=== PATIENT | female | born 1940 | race Caucasian/White ===

== ENCOUNTER 2017-01-06 09:31 | Outpatient (CLI) ==
[2016-06-03 14:59] VITALS: BMI 27.4
--- NOTE | 2017-01-06 10:22 | US ---
EXAM: Ultrasound bilateral carotid duplex HISTORY: Hypertension and diabetes with concern for bruit COMPARISON: Carotid Doppler 02/22/2013 and 10/14/2011 TECHNIQUE: Sonographic and color Doppler evaluation of the carotids were performed. FINDINGS: The right carotid is patent in appearance and tortuous with mild atherosclerotic plaque visualized. The right ICA peak systolic velocity measures 100 cm/sec which is normal. The ICA / CCA peak systolic velocity ratio is 2.2 and ICA end-diastolic velocity is 20 cm/sec. The left carotid is patent in appearance and tortuous with mild to moderate atherosclerotic plaque v isualized. The left ICA peak systolic velocity measures 150 cm/sec which is mildly elevated. The left ICA / CCA peak systolic velocity ratio is 2.7 and ICA end-diastolic velocity is 30 cm/sec. Vertebral arteries demonstrate antegrade flow bilaterally. IMPRESSION: 1. 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 This has worsened by velocity measurements since prior ex amination 2012. 2. Mild sonographic atherosclerotic disease of the right ICA with no Doppler velocity changes to cummings ggest hemodynamically significant stenosis.
== END 2017-01-06 09:32 | disposition home or self-care (01) ==
LOC: RAD 09:31
PROVIDERS: ATTEND Family Medicine
DX: I65.29 Occlusion and stenosis of unspecified carotid artery (principal); R09.89 Other specified symptoms and signs involving the circulatory and respiratory systems

== ENCOUNTER 2017-03-24 10:25 | Outpatient (CLI) ==
[2016-06-03 14:59] VITALS: BMI 27.4
--- NOTE | 2017-03-24 12:22 | DI ---
EXAM: Three views of the lumbar spine. History: Lower back pain. Findings: Atherosclerotic vascular calcifications. Osteopenia. No acute fracture or subluxation. Mild to moderate multilevel degenerative disc space narrowing with endplate sclerosis and a few small anterior osteophytes. Impression: 1. No acute osseous abnormality. 2. Mild to moderate degenerative changes. 3. Osteopenia
== END 2017-03-24 10:26 | disposition home or self-care (01) ==
LOC: RAD 10:25
PROVIDERS: ATTEND Family Medicine
DX: M54.9 Dorsalgia, unspecified (principal); G89.29 Other chronic pain

== ENCOUNTER 2018-05-02 14:53 | Outpatient (CLI) ==
[2016-06-03 14:59] VITALS: BMI 27.4
--- NOTE | 2018-05-02 16:00 | DI ---
EXAM: Two views of the chest. History: Short of breath Comparison: Chest CT 03/04/2015 Findings: Heart is mildly enlarged. There is a new 8.3 cm x 4.6 cm left perihilar mass. No appreciab le pleural fluid and no pneumothorax. No acute osseous abnormalities. Impression: Unexpected finding: New left perihilar mass suspicious for malignancy. Recommend furthe r evaluation with contrast enhanced chest CT.
== END 2018-05-02 14:54 | disposition home or self-care (01) ==
LOC: RAD 14:53
PROVIDERS: ATTEND Family Medicine
DX: R06.02 Shortness of breath (principal); J38.00 Paralysis of vocal cords and larynx, unspecified

== ENCOUNTER 2018-07-05 09:32 | Outpatient (CLI) ==
[2016-06-03 14:59] VITALS: BMI 27.4
== END 2018-07-05 09:33 | disposition home or self-care (01) ==
LOC: LAB 09:32
PROVIDERS: ATTEND Internal Medicine
DX: C34.32 Malignant neoplasm of lower lobe, left bronchus or lung (principal); C34.90 Malignant neoplasm of unspecified part of unspecified bronchus or lung
CPT/HCPCS: 36415; 85027

== ENCOUNTER 2018-07-21 10:30 | Emergency (ER) ==
[2018-07-21 10:33] VITALS: BP 115/44; TEMP 97.8; BMI 28.5
--- NOTE | 2018-07-21 11:42 | ED.PDOC ---
General ED Provider: Dr. HUMAIRA REYES Chief Complaint: Extremity Pain/Injury Stated Complaint: left leg pain Time Seen by Physician: 10:30 (seen with christel ) Mode of Arrival: Walk-In Information Source: Patient Exam Limitations: No limitations Primary Care Provider: BRIGITTE BROOKS Nursing and Triage Documentation Reviewed and Agree: Yes Does patient meet sepsis criteria?: No System Inflammatory Response Syndrome: Not Applicable Sepsis Protocol: For patient's 13 years and over: Temp is 96.8 and below OR 101 and greater Pulse >90 BPM Resp >20/minute Acutely Altered Mental Status Are patient's symptoms suggestive of a new infection, such as: -Pneumonia -Skin, Soft Tissue -Endocarditis -UTI -Bone, Joint Infection -Implantable Device -Acute Abdominal Infection -Wound Infection -Meningitis -Blood Stream Catheter Infection -Unknown Musculoskeletal Complaint Exam - Lower Extremity Complaint/Exam Location of Pain: Reports: Left, Leg Mechanism of Injury: Reports: No known trauma Symptoms Are: Still present Onset of Pain: Reports: Hours Initial Severity: Mild Current Severity: Mild Location: Reports: Discrete Character: Reports: Dull Alleviating: Reports: None Aggravating: Reports: None Able to Bear Weight: Yes Associated Signs and Symptoms: Denies: Swelling, Redness, Bruising, Fever, Weakness, Numbness, Tingling DVT Risk Factors: Reports: None Septic Arthritis Risk Factors: Reports: None Related Surgical History: Reports: None Lower Extremity Findings: Absent: Swelling, Ecchymosis, Abnormal contour, Rotation, Ligamentous instability, Laceration, Erythema, Warmth, Blisters, Foreign body, Tenderness, Limited range of motion Differential Diagnoses: Strain, Sprain Review of Systems - Review Of Systems Constitutional: Reports: No symptoms Eyes: Reports: No symptoms Ears, Nose, Mouth, Throat: Reports: No symptoms Respiratory: Reports: No symptoms Cardiac: Reports: No symptoms GI: Reports: No symptoms : Reports: No symptoms Musculoskeletal: Reports: Other (leg pain left) Skin: Reports: No symptoms Neurological: Reports: No symptoms Endocrine: Reports: No symptoms Hematologic/Lymphatic: Reports: No symptoms All Other Systems: Reviewed and Negative Past Medical History - Past Medical History Previously Healthy: Yes Endocrine: Reports: None, Dyslipidemia Cardiovascular: Reports: Hypertension Respiratory: Reports: None Hematological: Reports: None Gastrointestinal: Reports: GERD Genitourinary: Reports: None Neuro/Psych: Reports: None Musculoskeletal: Reports: None Cancer: Reports: None, Lung Last Menstrual Period: N/A - Surgical History General Surgical History: Reports: , Orthopedic - Family History Family History: Reports: Unknown - Social History Smoking Status: Former smoker Hx Substance Use: No Alcohol Screening: None - Immunizations Tetanus Shot up to Date: No Physical Exam - Physical Exam Appearance: Well-appearing, No pain distress, Well-nourished Eyes: MARIANGEL, EOMI, Conjunctiva clear ENT: Ears normal, Nose normal, Oropharynx normal Respiratory: Airway patent, Breath sounds clear, Breath sounds equal, Respirations nonlabored Cardiovascular: RRR, Pulses normal, No rub, No murmur GI/: Soft, Nontender, No masses, Bowel sounds normal, No Organomegaly Musculoskeletal: Normal strength, ROM intact, No edema, No calf tenderness Skin: Warm, Dry, Normal color Neurological: Sensation intact, Motor intact, Reflexes intact, Cranial nerves intact, Alert, Oriented Psychiatric: Affect appropriate, Mood appropriate Critical Care Note - Critical Care Note Total Time (mins): 0 Course - Course Hematology/Chemistry: 07/21/18 10:43 07/21/18 10:43 Orders, Labs, Meds: Lab Review 07/21/18 07/21/18 10:43 10:43 WBC 13.07 H RBC 2.64 L Hgb 7.4 L Hct 23.6 L MCV 89.4 MCH 28.0 MCHC 31.4 L RDW Coeff of Poli 16.7 H Plt Count 19 L* Neutrophils % (Manual) 56.0 Band Neutrophils % 12.0 H Lymphocytes % (Manual) 19.0 Monocytes % (Manual) 7.0 Metamyelocytes % 4.0 H Reactive Lymphocytes 2.0 Anisocytosis Not present Sodium 139.6 Potassium 3.71 Chloride 103.0 Carbon Dioxide 30.0 Anion Gap 10.31 BUN 10.8 Creatinine 0.76 Estimated GFR (MDRD) 74.00 BUN/Creatinine Ratio 14.21 Glucose 104.4 Uric Acid 3.83 Calcium 7.58 L Total Bilirubin 0.28 AST 15.0 ALT 14.1 Alkaline Phosphatase 97.1 Total Protein 6.09 L Albumin 3.37 L Globulin 2.72 Albumin/Globulin Ratio 1.23 Orders Category Date Time Status CBC W/ AUTO DIFF Stat LAB 07/21/18 10:43 Ordered COMPREHENSIVE METABOLIC PANEL Stat LAB 07/21/18 10:43 Ordered MANUAL DIFFERENTIAL Stat LAB 07/21/18 10:43 Completed URIC ACID Stat LAB 07/21/18 10:43 Completed Vital Signs: Temp Pulse Resp BP Pulse Ox 07/21/18 10:30 97.8 F 100 H 18 115/44 L 95 Departure - Departure Time of Disposition: 11:42 Disposition: HOME SELF-CARE Discharge Problem: Leg pain Qualifiers: Laterality: left Qualified Code(s): M79.605 - Pain in left leg Instructions: Leg Pain (ED) Condition: Good Pt referred to PMD for follow-up: Yes IPMP verified?: No Additional Instructions: Please call your Family Physician as soon as possible to schedule a follow-up appointment. Allergies/Adverse Reactions: Allergies Penicillins Adverse Reaction (Verified 07/21/18 10:33) Home Medications: Ambulatory Orders Aspirin [Emily Chewable] 81 mg PO DAILY 03/04/15 Calcium Carbonate/Vitamin D3 [Calcium 600 + Vit D 800 Tab] 800 mg PO DAILY 03/04 Clonidine HCl 0.1 mg PO TID PRN 03/04/15 Gabapentin 300 mg PO DAILY 03/04/15 Losartan Potassium [Cozaar] 50 mg PO DAILY 03/04/15 Nebivolol HCl [Bystolic] 5 mg PO DAILY 03/04/15 Omeprazole [Prilosec] 40 mg PO DAILY 03/04/15 Disposition Discussed With: Patient
== END 2018-07-21 11:50 | disposition home or self-care (01) ==
LOC: ED 10:30
DX: M79.605 Pain in left leg (principal); I10 Essential (primary) hypertension; E78.5 Hyperlipidemia, unspecified
CPT/HCPCS: 36415; 80053; 84550; 85007; 85025; 99283

== ENCOUNTER 2018-08-22 11:17 | Outpatient (CLI) | END 2018-08-22 11:18 | disposition home or self-care (01) | LOC: LAB 11:17 | PROVIDERS: ATTEND Internal Medicine | DX: C34.32 Malignant neoplasm of lower lobe, left bronchus or lung (principal); C34.90 Malignant neoplasm of unspecified part of unspecified bronchus or lung | CPT/HCPCS: 36415; 85027 ==

== ENCOUNTER 2018-10-18 10:10 | Outpatient (CLI) | payer OTHER ==
--- NOTE | 2018-10-18 11:47 | US ---
EXAM: ULTRASOUND LOWER EXTREMITY VENOUS DOPPLER EXAM HISTORY: Leg pain. FINDINGS: Bilateral lower extremity venous Doppler exam. Real time petty-scale, Doppler spectral meenakshi lysis and color-flow Doppler imaging performed. The veins targeted for evaluation include the common femoral, greater saphenous, profundus, femoral, popliteal, peroneal, anterior tibial and posterior t ibial. The left posterior and anterior tibial veins were not seen. The evaluated veins demonstrated normal spontaneous flow and compression without evidence of thrombosis. IMPRESSION: 1. The left posterior tibial and anterior tibial veins were not seen. The visualized veins had no e vidence of thrombosis.
== END 2018-10-18 10:11 | disposition home or self-care (01) ==
LOC: RAD 10:10
PROVIDERS: ATTEND Internal Medicine
DX: M79.609 Pain in unspecified limb (principal); I26.99 Other pulmonary embolism without acute cor pulmonale

== ENCOUNTER 2018-10-21 17:44 | Outpatient (CLI) | END 2018-10-21 18:05 | disposition short-term general hospital (02) | LOC: AMBL 17:44 | PROVIDERS: ATTEND Internal Medicine | DX: R53.1 Weakness (principal); R11.2 Nausea with vomiting, unspecified; R19.7 Diarrhea, unspecified; R50.9 Fever, unspecified; N39.0 Urinary tract infection, site not specified; R00.0 Tachycardia, unspecified; C80.1 Malignant (primary) neoplasm, unspecified ==

== ENCOUNTER 2018-11-29 19:35 | Outpatient (CLI) | payer OTHER | END 2018-11-29 19:58 | disposition short-term general hospital (02) | LOC: AMBL 19:35 | PROVIDERS: ATTEND Internal Medicine | DX: M25.552 Pain in left hip (principal); W19.XXXA Unspecified fall, initial encounter ==